=== PATIENT | male | born 1955 | race Caucasian/White ===

== ENCOUNTER 2020-01-09 12:45 | Emergency (ER) | payer MEDICARE, OTHER ==
--- NOTE | 2020-01-09 13:32 | EDM.PDOC ---
ED HPI GENERAL MEDICAL PROBLEM - General Chief Complaint: Neurological Problem Stated Complaint: CONFUSED Time Seen by Provider: 01/09/20 13:31 Source of Information: Reports: Patient, Family History Limitations: Reports: Other (limited old records, patient not the best historian) - History of Present Illness INITIAL COMMENTS - FREE TEXT/NARRATIVE: 64 yo male with a remote hx of CVA and a previous dx of early Alzheimer's is brought in by his ( 1 year) for forgetting more things than normal starting about 11 am today. Yesterday had a dizzy spell, but was otherwise fine. Awoke today his normal self. He denies BOYD, nausea or dizziness now. Has what seems to be selective memory loss. He is oriented to time, place, location and situation. Can recall the president and his own address. Cannot recall eating breakfast today. Is uncertain about taking his meds today. Does not know name of meds(not new). [place] Just moved here from [place]. Does not know when he has had a BP measurement or what it was at that time. Onset: Today Onset Date: 01/09/20 Onset Time: 11:00 Duration: Hour(s):, Constant Location: Reports: Head Quality: Reports: Other (no pain) Severity: Mild (amnesia) Improves with: Reports: None Worsens with: Reports: Other (unknown) Context: Reports: Other (See HPI) Associated Symptoms: Reports: Other (select items he cannot remember, especially recent events) Treatments BEHAVIOR ANALYST: Reports: Other (see below) (none) - Related Data Allergies Allergy/AdvReac Type Severity Reaction Status Date / Time No Known Allergies Allergy Verified 01/09/20 13:08 Home Meds: Home Meds Calcium Carbonate [Tums] 200 mg PO ASDIRECTED 01/09/20 [History] Ferrous Gluconate 324 mg PO BID 01/09/20 [History] Losartan Potassium 50 mg PO DAILY 01/09/20 [History] Metoprolol Succinate [Toprol XL] 25 mg PO DAILY 01/09/20 [History] Multivitamin [Multivitamins] 1 each PO DAILY 01/09/20 [History] Pantoprazole Sodium [Protonix] 40 mg PO DAILY 01/09/20 [History] atorvaSTATin Calcium [Lipitor] 40 mg PO DAILY 01/09/20 [History] Past Medical History HEENT History: Reports: Impaired Vision Cardiovascular History: Reports: High Cholesterol, Hypertension Respiratory History: Reports: Sleep Apnea Other Respiratory History: cpap does not use Gastrointestinal History: Reports: GERD Endocrine/Metabolic History: Reports: Obesity/BMI 30+ - Infectious Disease History Infectious Disease History: Reports: Chicken Pox, Measles, Mumps - Past Surgical History Head Surgeries/Procedures: Reports: None HEENT Surgical History: Reports: None Cardiovascular Surgical History: Reports: None Respiratory Surgical History: Reports: None GI Surgical History: Reports: None Dermatological Surgical History: Reports: None Social & Family History - Tobacco Use Smoking Status *Q: Never Smoker Second Hand Smoke Exposure: No - Caffeine Use Caffeine Use: Reports: Coffee - Alcohol Use Days Per Week of Alcohol Use: 4 Number of Drinks Per Day: 1 Total Drinks Per Week: 4 - Recreational Drug Use Recreational Drug Use: No ED ROS GENERAL - Review of Systems Review Of Systems: Comprehensive ROS is negative, except as noted in HPI. Neurological: Reports: Other (has forgotten events from earlier today) ED EXAM, NEURO - Physical Exam Exam: See Below Exam Limited By: No Limitations General Appearance: Alert, WD/WN, No Apparent Distress Eye Exam: Bilateral Eye: EOMI, Normal Inspection, PERRL Ears: Normal External Exam, Normal Canal, Hearing Grossly Normal, Normal TMs Nose: Normal Inspection, No Blood Throat/Mouth: Normal Inspection, Normal Lips, Normal Oropharynx, Normal Voice, No Airway Compromise Head Exam: Atraumatic, Normocephalic Neck: Normal Inspection, Non-Tender Respiratory/Chest: No Respiratory Distress, Lungs Clear, Normal Breath Sounds, No Accessory Muscle Use Cardiovascular: Regular Rate, Rhythm, No Edema GI/Abdominal: Soft, Non-Tender, No Distention Neurological: Alert, Normal Mood/Affect, CN II-XII Intact, No Motor/Sensory Deficits, Oriented x 3 Back Exam: Normal Inspection, CVA Tenderness (R), CVA Tenderness (L) Extremities: Normal Inspection, Normal Range of Motion, Non-Tender, No Pedal Edema Psychiatric: Normal Affect, Normal Mood Skin Exam: Warm, Dry, Intact, Normal Color, No Rash Course - Vital Signs Last Recorded V/S: Last Vital Signs Temp 36.2 C 01/09/20 13:15 Pulse 71 01/09/20 13:38 Resp 16 01/09/20 13:38 BP 161/104 H 01/09/20 13:38 Pulse Ox 95 01/09/20 13:38 - Orders/Labs/Meds Orders: Active Orders 24 hr Category Date Time Status Cardiac Monitoring [RC] .As Directed Care 01/09/20 13:30 Active UA W/MICROSCOPIC [URIN] Stat Lab 01/09/20 13:30 Ordered Labs: Laboratory Tests 01/09/20 01/09/20 Range/Units 13:41 13:41 WBC 6.5 (4.5-11.0) K/uL RBC 5.13 (4.30-5.90) M/uL Hgb 15.5 H (12.0-15.0) g/dL Hct 47.2 (40.0-54.0) % MCV 92 (80-98) fL MCH 30 (27-31) pg MCHC 33 (32-36) % Plt Count 276 (150-400) K/uL Sodium 142 (140-148) mmol/L Potassium 4.1 (3.6-5.2) mmol/L Chloride 105 (100-108) mmol/L Carbon Dioxide 29 (21-32) mmol/L Anion Gap 8.2 (5.0-14.0) mmol/L BUN 18 (7-18) mg/dL Creatinine 1.1 (0.8-1.3) mg/dL Est Cr Clr Drug Dosing 64.77 mL/min Estimated GFR (MDRD) > 60 (>60) Glucose 94 (74-106) mg/dL Calcium 9.0 (8.5-10.1) mg/dL Troponin I < 0.017 (0.000-0.056) ng/mL Meds: Medications Discontinued Medications Generic Name Dose Route Start Last Admin Trade Name Freq PRN Reason Stop Dose Admin Metoprolol Tartrate 25 mg 01/09/20 14:12 Lopressor PO 01/09/20 14:13 ONETIME ONE - Radiology Interpretation Free Text/Narrative:: Head CT scan-age related atrophy only CT Results Date: 01/09/20 CT Results Time: 14:10 Departure - Departure Time of Disposition: 14:20 Disposition: Home, Self-Care 01 Condition: Fair Clinical Impression: Short-term memory loss HTN (hypertension) Qualifiers: Hypertension type: unspecified Qualified Code(s): I10 - Essential (primary) hypertension - Discharge Information *PRESCRIPTION DRUG MONITORING PROGRAM REVIEWED*: No *COPY OF PRESCRIPTION DRUG MONITORING REPORT IN PATIENT GUTIERREZ: No Instructions: Hypertension, Adult, [id number] Referrals: PCP,None [Primary Care Provider] - Forms: ED Department Discharge Additional Instructions: Get established with a local provider as soon as possible. Increase your metoprolol succinate to 50 mg daily. Continue your other medicines as currently. Return if worse. Sepsis Event Note - Evaluation Sepsis Screening Result: No Definite Risk - Focused Exam Vital Signs: Vital Signs Temp Pulse Resp BP Pulse Ox 01/09/20 13:38 71 16 161/104 H 95 01/09/20 13:22 74 18 172/110 H 95 01/09/20 13:15 36.2 C 74 15 174/107 H 97 01/09/20 13:13 36.2 C 74 15 174/107 H 97 Date Exam was Performed: 01/09/20 Time Exam was Performed: 14:14 - My Orders Last 24 Hours: My Active Orders 01/09/20 13:30 Cardiac Monitoring [RC] .As Directed UA W/MICROSCOPIC [URIN] Stat - Assessment/Plan Last 24 Hours: My Active Orders 01/09/20 13:30 Cardiac Monitoring [RC] .As Directed UA W/MICROSCOPIC [URIN] Stat
--- NOTE | 2020-01-09 14:08 | CT ---
Head wo Cont CLINICAL HISTORY: Amnesia COMPARISON: None TECHNIQUE: Transverse scans were obtained from the base of the skull through the vertex without IV contrast on a multislice, multidetector CT scanner. Auto dosage reduction and iterative reconstruction techniques employed. FINDINGS: No focal abnormal parenchymal density is identified. There is no mass effect, hemorrhage, or extraaxial collection. The basal cisterns and sulci over the convexities are prominent. The ventricles are normal for age. IMPRESSION: Mild age-related atrophy No focal lesion, mass effect or hemorrhage
[2020-01-09] MEDS ORDERED: Metoprolol Tartrate 25 MG Tab PO ONE (14:12)
== END 2020-01-09 15:00 | disposition home or self-care (01) ==
LOC: JP.ED 12:45
DX: I10 Essential (primary) hypertension (principal); R41.3 Other amnesia; E78.00 Pure hypercholesterolemia, unspecified; G30.9 Alzheimer's disease, unspecified; F02.80 Dementia in other diseases classified elsewhere, unspecified severity, without behavioral disturbance, psychotic disturbance, mood disturbance, and anxiety; K21.9 Gastro-esophageal reflux disease without esophagitis; E66.9 Obesity, unspecified; Z68.31 Body mass index [BMI] 31.0-31.9, adult
CPT/HCPCS: 36415; 70450; 80048; 81001; 84484; 85027; 99285; A9270; 99283

== ENCOUNTER 2020-02-02 06:55 | Day surgery (SDC) | payer MEDICARE, OTHER ==
[2020-02-02] MEDS ORDERED: Dextrose 5%-Lactated Ringers 1,000 ML IV SCH (07:00)
[2020-02-02] MEDS ORDERED: fentaNYL 100 MCG/2 ML SDV ONE (08:02)
[2020-02-02] MEDS ORDERED: Midazolam 1 MG/ML 2 ML SDV ONE (08:02)
[2020-02-02] MEDS ORDERED: Propofol 200 MG/20 ML SDV ONE ×2 (08:02→09:05)
--- NOTE | 2020-02-07 14:34 | OR ---
DATE OF PROCEDURE: 02/02/2020 SURGEON: John Gabriel MD PREOPERATIVE DIAGNOSES: 1. History of Jo esophagus. 2. History of colon polyps. POSTOPERATIVE DIAGNOSES: 1. History of Jo esophagus with moderate hiatal hernia and active ulcerative esophagitis. 2. History of colon polyps with: a. Single polyp (4 mm) at hepatic flexure. b. Left colonic diverticulosis. OPERATIVE PROCEDURES: 1. Esophagogastroduodenoscopy with: a. Biopsy of esophagogastric junction for histologic evaluation. b. Biopsies of antrum for CLOtest (04399). 2. Flexible colonoscopy with polypectomy by snare technique (92494). ANESTHESIA: IV sedation. INDICATION FOR PROCEDURE: The patient presents for followup of his Jo esophagus. He is having worsening heartburn symptoms despite ongoing medical management and is interested in surgical anti-reflux procedure at this point. He also has history of colon polyps and is due for a followup colonoscopy. Plan will be to proceed with upper and lower endoscopy with biopsies and/or polypectomies as indicated. Potential risks including bleeding and perforation were discussed, and the patient wishes to proceed. DETAILS OF PROCEDURE: The patient was taken to the operating room and placed in a left lateral decubitus position. IV sedation was administered, after which the upper GI endoscope was passed orally through the length of the esophagus and stomach with retroflexion view of the fundus, thereafter through the pyloric channel and into the junction of the third and fourth portions of the duodenum. Findings included some active distal esophagitis with moderate-sized hiatal hernia with some linear ulcerative areas and essentially wide-open esophagogastric junction. There was some upward extension of the gastroesophageal junction mucosal line consistent with Jo esophagus. There is no plaquing or stricturing, neoplastic process. Plane of stomach was unremarkable as was the pyloric channel and visualized portions of the duodenum. At this point, biopsies were obtained from the antrum to establish the patient's H pylori status and multiple biopsies were then obtained from esophagogastric junction, sent for histologic evaluation. Minimal bleeding from biopsy sites was seen and the procedure was then concluded. Attention was then taken to the colonoscopy. Initial digital rectal exam was performed and was unremarkable. Colonoscope was then passed to the level of the rectum with retroflexion revealing uncomplicated hemorrhoidal columns. Scope was then eventually passed to the cecum. The prep was quite good with only a small amount of liquid stool present. The patient had some uncomplicated left colonic diverticulosis. There was a single polyp measuring around 4 mm in the hepatic flexure. This was excised by means of snare technique and sent for histologic evaluation. Good hemostasis was seen. Otherwise, there were no additional polyps identified. The patient was taken to the recovery room in satisfactory condition. Plan will be to proceed with a laparoscopic Narciso fundoplication at the end of next week. His sister just recently as a result of cerebral hemorrhage and they will be waiting until after the to complete the surgical procedure. Otherwise, he should have continued surveillance of Jo's esophagus every 2 to 3 years even with the upcoming surgical procedure and next colonoscopy assuming that today's polyp is benign should be obtained in 2 to 3 years. John Gabriel MD /[id number]
== END 2020-02-02 11:50 | disposition home or self-care (01) ==
LOC: JP.SDS 06:55
PROVIDERS: ATTEND Surgery
DX: Z12.11 Encounter for screening for malignant neoplasm of colon (principal); D12.3 Benign neoplasm of transverse colon; K21.0 Gastro-esophageal reflux disease with esophagitis; K22.10 Ulcer of esophagus without bleeding; K57.30 Diverticulosis of large intestine without perforation or abscess without bleeding; K31.7 Polyp of stomach and duodenum; K44.9 Diaphragmatic hernia without obstruction or gangrene; I10 Essential (primary) hypertension; Z86.010 Personal history of colon polyps; Z87.19 Personal history of other diseases of the digestive system
CPT/HCPCS: 43239; 45385; 87081; 88305; 88312; J2250; J2704; J3010; J7121

== ENCOUNTER 2020-02-08 05:35 | Inpatient (IN) | payer MEDICARE, OTHER ==
[2020-02-08] MEDS ORDERED: Acetaminophen 500 MG Tab PO ONE (05:45)
[2020-02-08] MEDS ORDERED: Dextrose 5%-Lactated Ringers 1,000 ML IV SCH (06:00)
[2020-02-08] MEDS ORDERED: ceFAZolin 2 GM in Premix Bag 1 BAG IV ONE (07:15)
[2020-02-08] MEDS ORDERED: fentaNYL 250 MCG/5 ML SDV ONE (07:21)
[2020-02-08] MEDS ORDERED: Glycopyrrolate 0.2 MG/ML 5 ML MDV ONE (07:22)
[2020-02-08] MEDS ORDERED: Neostigmine Methylsulfate 1 MG/ML 5 ML Syringe ONE (07:22)
[2020-02-08] MEDS ORDERED: Ondansetron 4 MG/2 ML SDV ONE (07:22)
[2020-02-08] MEDS ORDERED: Propofol 200 MG/20 ML SDV ONE (07:22)
[2020-02-08] MEDS ORDERED: Rocuronium 50 MG/5 ML Vial ONE (07:22)
[2020-02-08] MEDS ORDERED: Dexamethasone 4 MG/ML SDV ONE (07:22)
[2020-02-08] MEDS ORDERED: Ketamine 50 MG in Sodium Chloride 0.9% 49.5 ML IV SCH (08:00)
[2020-02-08] MEDS ORDERED: Ketamine 500 MG/5 ML MDV IV SCH (08:00)
[2020-02-08] MEDS ORDERED: Ropivacaine 46 ML, dexAMETHasone 8 MG, EPINEPHrine 0.4 MG, Sodium Chloride 0.9% 31.6 ML NERVRT SCH ×8 (08:00→12:00)
[2020-02-08] MEDS ORDERED: ePHEDrine 50 MG/ML SDV ONE (08:44)
[2020-02-08] MEDS ORDERED: Sugammadex Sodium 200 MG/2 ML VIAL ONE (08:50)
[2020-02-08] MEDS ORDERED: hydrOXYzine HCL 100 MG/2 ML SDV IM ONE (09:00)
[2020-02-08] MEDS ORDERED: Pantoprazole 40 MG Vial IVPUSH ONE (09:02)
[2020-02-08] MEDS ORDERED: HYDROmorphone 1 MG/ML Syringe IV PRN (10:34)
[2020-02-08] MEDS ORDERED: HYDROmorphone 0.5 MG/0.5 ML Syringe IVPUSH PRN (10:34)
[2020-02-08] MEDS ORDERED: oxyCODONE 5 MG Tab PO PRN (10:35)
[2020-02-08] MEDS ORDERED: hydrOXYzine HCL 100 MG/2 ML SDV IM PRN (10:43)
[2020-02-08] MEDS ORDERED: Ondansetron 4 MG/2 ML SDV IVPUSH PRN (10:44)
[2020-02-08] MEDS: Metoclopramide 10 MG/2 ML SDV IV SCH ×3 (13:53→23:14)
[2020-02-08] MEDS: Losartan 50 MG Tab PO SCH (15:34)
[2020-02-08] MEDS: Acetaminophen 500 MG Tab PO SCH ×2 (15:34→19:39)
[2020-02-08] MEDS: Dextrose 5%-Lactated Ringers 1,000 ML IV SCH (21:21)
[2020-02-08] MEDS: Metoprolol Succinate 50 MG Tab.ER PO SCH (21:21)
[2020-02-09] MEDS: Acetaminophen 500 MG Tab PO SCH ×4 (03:02→19:40)
[2020-02-09] MEDS: Dextrose 5%-Lactated Ringers 1,000 ML IV SCH (03:39)
[2020-02-09] MEDS: Metoclopramide 10 MG/2 ML SDV IV SCH ×3 (05:30→18:07)
[2020-02-09] MEDS ORDERED: Ondansetron 4 MG Tab.DIS PO PRN (07:01)
[2020-02-09] MEDS ORDERED: HYDROmorphone 2 MG Tab PO PRN (07:01)
[2020-02-09] MEDS ORDERED: Dextrose 5%-Lactated Ringers 1,000 ML IV SCH (07:15)
[2020-02-09] MEDS: Losartan 50 MG Tab PO SCH (08:35)
[2020-02-09] MEDS ORDERED: atorvaSTATin 20 MG Tab PO SCH (09:00)
[2020-02-09] MEDS ORDERED: Pantoprazole 40 MG Vial IV SCH (09:00)
--- NOTE | 2020-02-09 09:52 | PN ---
DATE OF SERVICE: 02/09/2020 SUBJECTIVE: Miguel is postop day #1 following a laparoscopic Narciso fundoplication. His pain is controlled. His activity is good. Up, ambulating. Oral intake 950. Urine output 1300. REVIEW OF SYSTEMS: Remainder of review of systems negative for any pertinent positives and negatives. OBJECTIVE: GENERAL: Miguel Sheffield is a pleasant 65-year-old male, alert, orientated. VITAL SIGNS: TPR at 0303; 96.9, 70, 18. Blood pressure 97/55. HEENT: Negative. NECK: Supple. HEART: Regular rate and rhythm. LUNGS: Clear. ABDOMEN: Dressings dry and intact. Abdominal binder is on. EXTREMITIES: Without peripheral edema. ASSESSMENT: Laparoscopic Narciso fundoplication on 02/08/2020. PLAN: 1. Dressing off, january shower. 2. Dietary consult in regard to new lap Narciso, full liquid diet for 2 weeks. 3. Full liquid diet. 4. Decrease IV to 100 mL per hour. 5. Dilaudid 2 mg every 4 hours p.r.n. pain. 6. Zofran ODT 4 mg every 4 hours p.r.n. nausea. 7. Continue ambulation and using incentive spirometer as directed. 8. We will evaluate p.r.n. or in a.m. Isabell Abbott PA-C /[id number]
[2020-02-09] MEDS: Metoprolol Succinate 50 MG Tab.ER PO SCH (21:32)
[2020-02-10] MEDS ORDERED: Metoclopramide 10 MG Tab PO PRN
[2020-02-10] MEDS: Acetaminophen 500 MG Tab PO SCH ×2 (03:38→07:30)
[2020-02-10] MEDS ORDERED: Pantoprazole 40 MG Tab.CR PO SCH (07:30)
--- NOTE | 2020-02-12 11:05 | DISCH ---
FINAL DIAGNOSES: 1. Gastroesophageal reflux disease refractory to medical management associated with paraesophageal diaphragmatic hernia. 2. Mediastinal lipoma. 3. History of Jo's esophagus without dysplasia. 4. Hyperlipidemia. 5. History of hypertension. 6. History of transient ischemic attack. OPERATIVE PROCEDURE: Done on 02/08/2020, diagnostic laparoscopy with: 1. Repair of paraesophageal diaphragmatic hernia with mesh, including Narciso fundoplication. 2. Excision of mediastinal lipoma. SUMMARY: This is a 65-year-old male, presenting with gastroesophageal reflux disease that had become progressively worse, refractory to medical management. He has a known history of Jo's esophagus without dysplasia and has been on Protonix 40 mg a day. After preop evaluation and discussion, he wished to proceed with Narciso fundoplication. He was noted to have significant paraesophageal diaphragmatic hernia component to his hiatal hernia, and this was reinforced with a mesh-type repair. This being a dissolvable mesh, it will leave a thicker scar at the level of the crural repair than a primary suture approach would accomplish. Postoperatively, he has had no significant dysphagia on a full liquid diet, and heartburn is likewise alleviated. He will be discharged home with instructions to stay on full liquid diet for 2 weeks postoperatively and then begin soft solids and progress as tolerated. He has not needed anything for pain postoperatively, so he will be instructed that he can take Tylenol as needed, and we will have him discontinue the Protonix. Otherwise, continue the present medications. Followup with Dr. Gabriel at [facility] on 2019. TIFFANIE
--- NOTE | 2020-02-14 15:25 | OR ---
DATE OF PROCEDURE: 02/08/2020 SURGEON: John Gabriel MD PREOPERATIVE DIAGNOSIS: Gastroesophageal reflux disease refractory to medical management. POSTOPERATIVE DIAGNOSES: 1. Gastroesophageal reflux disease refractory to medical management and associated with paraesophageal diaphragmatic hernia. 2. Mediastinal lipoma. OPERATIVE PROCEDURES: 1. Laparoscopic Narciso fundoplication with concurrent repair of paraesophageal diaphragmatic hernia with mesh (62912). 2. Excision of mediastinal lipoma (48214). ANESTHESIA: General. MANAGED CARE COORDINATOR: Isabell Abbott PA-C INDICATIONS FOR PROCEDURE: This is a 65-year-old male, presenting with worsening gastroesophageal reflux disease, that has become refractory to medical management. After preoperative evaluation and discussion, he wished to proceed with a Narciso fundoplication. Potential risks including bleeding, infection, injury to underlying viscera, problems with fundoplication such as dysphagia, gas bloat syndrome, disorders of gastric emptying rate, as well as possibility of incomplete relief of reflux symptoms were all gone over along with the remote possibility of cardiopulmonary, septic, or hemorrhagic complications leading to , and the patient wishes to proceed. DETAILS OF PROCEDURE: The patient was taken to the operating room. After general endotracheal anesthesia was induced, he was placed in a lithotomy position and the abdomen was prepped and draped. 15 cm inferior and 5 cm left of the xiphoid process, a transverse incision was made, and peritoneal cavity entered under direct vision with an Optiview trocar and inflated to 15 mmHg pressure with CO2. Laparoscope was reinserted and no underlying trocar insertion site injuries were seen. Bilateral transversus abdominis plane blocks were then placed, following which 4 additional trocars were placed across the upper and mid abdomen. As one elevated the liver, the patient had a major paraesophageal component to the hernia with prolapse of perigastric fat, gastric fundus, and some omentum in a plane anterior to the course of the esophagus. This was reduced and peritoneum overlying it was incised and reflected downward. The peritoneum over the junction of the right and left crura and esophagus was divided allowing the dissection behind the esophagus. Retroesophageal window was then established and additional attachments to the esophagus were divided with Harmonic scalpel such that, at that point, roughly 5 cm length of intraabdominal esophagus had been established. During the course of the dissection, mediastinal lipoma was encountered, and this was taken out in several pieces. Crural repair was then accomplished with some 0 Ethibond sutures reinforced with PTFE pledgets. Because of the size of the defect, this was reinforced with a Phasix ST mesh cut in a horseshoe-type configuration to lay across crural repair and then slightly on the side of the esophagus and fixed to the crura on each side. The omentum beginning at the upper greater curvature was divided away from the stomach with Harmonic scalpel. This dissection was then continued up through the short gastric vessels including the highest and posterior short gastric vessels. The fundus was then skeletonized away from the left aggie, and the now adequately mobile fundus was retrieved through retroesophageal window. Anesthesia placed a guidewire orally through the esophagus and into the stomach and over this a 54-Lithuanian dilator was placed. Over the dilator, a three-stitch 2 cm fundoplication was accomplished with 0 Ethibond sutures reinforced with PTFE pledgets. Each of these sutures included bites of the underlying esophagus to help fix in position. The patient then had 2 additional sutures between the fundoplication, and the overlying diaphragm placed with the same stitch-pledget combination to, again, help maintain it in a position over the esophagus. At that point, no further problems were noted. The dilator and wire were removed. Fundoplication was inspected and found to be adequately floppy. Trocars were then sequentially removed. The fascia at the 12 mm site was closed with 0 Vicryl stitch and skin with 4-0 Vicryl skin stitch. Dressing was applied. The patient was taken to the recovery room in satisfactory condition. Physician lpn or medical assistant, Isabell Abbott, played an essential role in assisting in this case; helping to position the patient, retract structures as needed, as well as suturing and cutting sutures when indicated. Her presence improved the patient's safety and facilitated a more efficient operative procedure. John Gabriel MD /[id number]
== END 2020-02-10 08:45 | disposition home or self-care (01) | DRG 328 ==
LOC: JP.SDS 05:35 → JP.SDSSCHI 05:35 → EDSTATUS 07:15 → JP.MS 08:55
PROVIDERS: ADMIT Surgery; ATTEND Surgery
PROC: 0DV44ZZ Restriction of Esophagogastric Junction, Percutaneous Endoscopic Approach (ICD-10-PCS; principal; 2020-02-08)
PROC: 0BUT4JZ Supplement Diaphragm with Synthetic Substitute, Percutaneous Endoscopic Approach (ICD-10-PCS; 2020-02-08)
PROC: 0JB63ZZ Excision of Chest Subcutaneous Tissue and Fascia, Percutaneous Approach (ICD-10-PCS; 2020-02-08)
DX: K21.9 Gastro-esophageal reflux disease without esophagitis (principal); K44.9 Diaphragmatic hernia without obstruction or gangrene; D17.1 Benign lipomatous neoplasm of skin and subcutaneous tissue of trunk; K22.70 Barrett's esophagus without dysplasia; E78.5 Hyperlipidemia, unspecified; I10 Essential (primary) hypertension; K63.5 Polyp of colon; E66.01 Morbid (severe) obesity due to excess calories; G47.30 Sleep apnea, unspecified; Z86.73 Personal history of transient ischemic attack (TIA), and cerebral infarction without residual deficits
CPT/HCPCS: 88304; 93005; 94762; A9270-GY; C1713; C1781; C9113; J0171; J0690; J1100; J2405; J2704; J2710; J2765; J2795; J3010; J3410; J3490; J7050; J7121

== ENCOUNTER 2023-06-23 07:05 | Day surgery (SDC) | payer MEDICARE, OTHER ==
[2023-06-23] MEDS ORDERED: Propofol 200 MG/20 ML SDV ONE (07:39)
[2023-06-23] MEDS ORDERED: fentaNYL 50 MCG/ML SDV ONE (07:40)
[2023-06-23] MEDS ORDERED: Midazolam 1 MG/ML 2 ML SDV ONE (07:40)
[2023-06-23] MEDS ORDERED: Lactated Ringers 1,000 ML IV SCH (08:30)
== END 2023-06-23 11:15 | disposition home or self-care (01) ==
LOC: JP.SDS 07:05
PROVIDERS: ATTEND Student in an Organized Health Care Education/Training Program
DX: Z12.11 Encounter for screening for malignant neoplasm of colon (principal); K31.7 Polyp of stomach and duodenum; K57.30 Diverticulosis of large intestine without perforation or abscess without bleeding; K31.89 Other diseases of stomach and duodenum; K22.89 Other specified disease of esophagus; E78.00 Pure hypercholesterolemia, unspecified; G47.33 Obstructive sleep apnea (adult) (pediatric); Z86.010 Personal history of colon polyps; Z87.19 Personal history of other diseases of the digestive system; Z98.890 Other specified postprocedural states
CPT/HCPCS: 43239; 88305; G0105; J2250; J2704; J3010; J7120

== ENCOUNTER 2024-11-16 06:23 | Day surgery (SDC) | payer MEDICARE, OTHER ==
[2024-11-16] MEDS ORDERED: fentaNYL 100 MCG/2 ML SDV ONE (06:47)
[2024-11-16] MEDS ORDERED: Propofol 200 MG/20 ML SDV ONE ×2 (06:47→08:25)
[2024-11-16] MEDS: Lactated Ringers 1,000 ML IV SCH (07:21)
== END 2024-11-16 09:49 | disposition home or self-care (01) ==
LOC: JP.SDS 06:23
PROVIDERS: ATTEND Surgery
DX: D50.9 Iron deficiency anemia, unspecified (principal); K29.50 Unspecified chronic gastritis without bleeding; K31.7 Polyp of stomach and duodenum; K20.0 Eosinophilic esophagitis; K57.30 Diverticulosis of large intestine without perforation or abscess without bleeding; I10 Essential (primary) hypertension; K21.9 Gastro-esophageal reflux disease without esophagitis
CPT/HCPCS: 00813; 43239; 45378; 88305; J2704; J3010; J7120

== ENCOUNTER 2024-12-12 20:31 | Emergency (ER) | payer MEDICARE, OTHER ==
[2024-12-12 21:25] LABS: BASOPHILS ABSOLUTE AUTO 0.07 K/uL (0.00-0.10); BASOPHILS PERCENT AUTO 0.7 % (0.1-1.3); EOSINOPHILS PERCENT AUTO 1.1 % (0.0-5.4); HEMATOCRIT 39.3 % (38.4-49.7); IMMATURE GRAN ABSOLUTE AUTO 0.03 K/uL (0.00-0.23); IMMATURE GRAN PERCENT AUTO 0.3 % (0.0-0.7); LYMPHOCYTES ABSOLUTE AUTO 1.24 K/uL (0.8-3.3); LYMPHOCYTES PERCENT AUTO 13.1 % (11.4-47.7); MEAN CORPUSCULAR HEMOGLOBIN 21.6 pg (31.6-35.5); MEAN CORPUSCULAR HGB CONC 30.5 g/dL (31.6-35.5); MEAN CORPUSCULAR VOLUME 70.7 fL (81.4-99.0); MONOCYTES ABSOLUTE AUTO 0.98 K/uL (0.20-0.90); MONOCYTES PERCENT AUTO 10.4 % (3.3-12.6); NEUTROPHILS ABSOLUTE AUTO 7.01 K/uL (1.0-7.6); NEUTROPHILS PERCENT AUTO 74.4 % (40.0-78.1); PLATELET COUNT,PLT 391 K/uL (130-375); RED BLOOD CELL COUNT 5.56 M/uL (4.14-5.76); WHITE BLOOD CELL COUNT,WBC 9.4 K/uL (3.2-11.0)
[2024-12-12 21:50] LABS: LACTIC ACID 1.3 mmol/L (0.4-2.0)
[2024-12-12 21:57] LABS: A/G RATIO 0.9 (1.2-2.2); ALANINE AMINOTRANSFERASE,ALT 23 U/L (12-78); ALBUMIN 3.4 g/dL (3.4-5.0); ALKALINE PHOSPHATASE 104 U/L (46-116); ANION GAP 10.3 mmol/L (5.0-14.0); ASPARTATE AMNIOTRANSFERASE,AST 16 U/L (15-37); BILIRUBIN TOTAL 0.7 mg/dL (0.2-1.0); BLOOD UREA NITROGEN,BUN 13 mg/dL (7-18); C-REACTIVE PROTEIN 3.84 mg/dL (<0.50); CARBON DIOXIDE,CO2 28 mmol/L (21-32); CHLORIDE,CL 103 mmol/L (100-108); CREATININE 1.1 mg/dL (0.8-1.3); EST CRCL DRUG DOSING (CG) 60.45 mL/min; ESTIMATED GFR 72 mL/min (>60); GLUCOSE RANDOM 122 mg/dL (74-106); PROTEIN TOTAL,TP 7.2 g/dL (6.4-8.2); SODIUM,NA 141 mmol/L (140-148)
[2024-12-12] MEDS: Sodium Chloride 0.9% 100 ML IV ONE (22:47)
[2024-12-12] MEDS: Iopamidol 612 MG/ML 100 ML Bottle IV ONE (22:47)
[2024-12-12] MEDS: Sodium Chloride 0.9% 10 ML Syringe FLUSH ONE (22:49)
== END 2024-12-13 00:35 | disposition home or self-care (01) ==
LOC: JP.ED 20:31
DX: K57.32 Diverticulitis of large intestine without perforation or abscess without bleeding (principal); I10 Essential (primary) hypertension; E78.00 Pure hypercholesterolemia, unspecified; E66.9 Obesity, unspecified; Z79.899 Other long term (current) drug therapy; Z68.29 Body mass index [BMI] 29.0-29.9, adult
CPT/HCPCS: 36415; 74177; 80053; 83605; 83690; 85025; 86140; 99283; 99284; Q9967

== ENCOUNTER 2025-06-12 06:52 | Day surgery (SDC) | payer MEDICARE, OTHER ==
[2025-06-12] MEDS ORDERED: Propofol 200 MG/20 ML SDV ONE (07:18)
[2025-06-12] MEDS ORDERED: Midazolam 1 MG/ML 2 ML SDV ONE (07:18)
[2025-06-12] MEDS ORDERED: fentaNYL 50 MCG/ML SDV ONE (07:18)
[2025-06-12] MEDS: Lactated Ringers 1,000 ML IV SCH (07:27)
== END 2025-06-12 09:16 | disposition home or self-care (01) ==
LOC: JP.SDS 06:52
PROVIDERS: ATTEND Surgery
DX: K22.70 Barrett's esophagus without dysplasia (principal); K22.89 Other specified disease of esophagus; E78.00 Pure hypercholesterolemia, unspecified; I10 Essential (primary) hypertension; E66.9 Obesity, unspecified; Z68.30 Body mass index [BMI] 30.0-30.9, adult; Z79.899 Other long term (current) drug therapy; Z98.890 Other specified postprocedural states
CPT/HCPCS: 00731; 43239; J2250; J2704; J3010; J7120